=== PATIENT | female | born 1970 | race Caucasian/White ===

== ENCOUNTER 2016-11-06 21:59 | Emergency (ER) | payer OTHER ==
[~2016-11-06] VITALS: Ht 167.6 cm; Wt 70.5 kg
[2016-11-06] MEDS ORDERED: NARCAN4 MG NS (23:01)
[2016-11-06 23:34] VITALS: BP 119/88
== END 2016-11-06 23:35 | disposition home or self-care (01) ==
LOC: EME 21:59
DX: T40.601A Poisoning by unspecified narcotics, accidental (unintentional), initial encounter (principal); R41.82 Altered mental status, unspecified; Y92.002 Bathroom of unspecified non-institutional (private) residence as the place of occurrence of the external cause; F17.200 Nicotine dependence, unspecified, uncomplicated
CPT/HCPCS: 99281; 99284; J2310